=== PATIENT | male | born 1950 | race Caucasian/White ===

== ENCOUNTER → 2018-08-01 | Outpatient (CLI) | payer BC ==
--- NOTE | 2018-08-01 12:01 | Diagnostic Imaging Report ---
PROCEDURE: CT sinuses without contrast TECHNIQUE: Multiple contiguous axial images were obtained through the sinuses without the use of intravenous contrast. Coronal and sagittal reformations were then performed. Auto Exposure Controls were utilized during the CT exam to meet ALARA standards for radiation dose reduction. INDICATION: Chronic maxillary sinusitis, right greater. COMPARISON: No prior studies are available for comparison. FINDINGS: The frontal sinus is clear. Minimal mucosal thickening in ethmoid air cells is noted. The sphenoid sinus also shows minimal mucosal thickening on the right side. The right maxillary sinus is hypoplastic and appears to be opacified. The left maxillary sinus is clear. There is nasal septal deviation to the right. Left ostiomeatal complex is patent. There is some narrowing and thickening involving the right ostiomeatal complex. Mastoid air cells are well-aerated bilaterally. IMPRESSION: Paranasal sinus mucosal disease. The right maxillary sinus is hypoplastic and opacified. Dictated by: Dictated on workstation # [id number]
== END ==
LOC: RAD FS 10:44
PROVIDERS: ATTEND Nurse Practitioner Family
DX: J32.0 Chronic maxillary sinusitis (principal)
CPT/HCPCS: 70486